=== PATIENT | male | born 1945 | race Hispanic/Latino ===

== ENCOUNTER → 2022-06-11 | Outpatient (CLI) | payer OTHER ==
[~2022-06-11] MED LIST: AMARYL4 MG; DEXILANT60 MG; FLOMAX0.4 MG; IBUPROFEN200 MG PO; MOTRIN; PANTOPRAZOLE SO40 MG; TRICOR145 MG PO; ULTRAM 50MG50 MG PO; ULTRAM50 MG; Z.0.AMARYL4 MG; [UNRECOGNIZED DRUG - OTHER]; ambien
== END ==
LOC: RAD 10:05
PROVIDERS: ATTEND Internal Medicine Critical Care Medicine
DX: R06.00 Dyspnea, unspecified (principal)
CPT/HCPCS: 71046